=== PATIENT | male | born 1955 | race Caucasian/White ===

== ENCOUNTER 2019-05-30 09:45 | Day surgery (SDC) | payer OTHER ==
[~2019-05-30] VITALS: Ht 185.4 cm; Wt 96.2 kg
[~2019-05-30 09:45] MED LIST: ATOR40TA PO; HYDCHL25 PO; METF500 PO; Ramipril10 MG PO
--- NOTE | 2019-05-30 11:42 | NUR ---
05/30/19 1142 Ema Sabillon PT O2 SAT DECREASED TO HIGH 80S. O2 FROM 3L TO 5L. PT BACK UP TO LOW TO MID 90S. PT ORALLY SUCTIONED WITH SCANT AMOUNT CLEAR FLUIDS.
--- NOTE | 2019-05-30 13:46 | NUR ---
05/30/19 [address] ORELLANA ORDER BARIUM ENEMA IS SCHEDULED IN STEP DOWN. PT NOTIFIED OF TIME AND DATE. PT AND SPOUSE OK WITH THIS.
== END 2019-05-30 12:34 | disposition home or self-care (01) ==
LOC: ORSCSDS 09:45
PROVIDERS: Internal Medicine Gastroenterology
PROC: 0DBL8ZX Excision of Transverse Colon, Via Natural or Artificial Opening Endoscopic, Diagnostic (ICD-10-PCS; principal; 2019-05-30 11:15)
DX: Z12.11 Encounter for screening for malignant neoplasm of colon (principal); D12.3 Benign neoplasm of transverse colon; Z86.010 Personal history of colon polyps; E11.9 Type 2 diabetes mellitus without complications; I10 Essential (primary) hypertension; F17.290 Nicotine dependence, other tobacco product, uncomplicated; Z79.84 Long term (current) use of oral hypoglycemic drugs; Z79.899 Other long term (current) drug therapy
CPT/HCPCS: 82947; 88305; J2704; J7120